=== PATIENT | female | born 1980 | race Caucasian/White ===

== ENCOUNTER 2019-01-26 10:03 | Emergency (ER) | payer SELFPAY ==
[~2019-01-26] VITALS: Ht 170.2 cm; Wt 134.4 kg
[2019-01-26 10:33] VITALS: BP 158/100
== END 2019-01-26 12:13 | disposition home or self-care (01) ==
LOC: ED 12:09
DX: L60.0 Ingrowing nail (principal)
CPT/HCPCS: 11730; 99283